=== PATIENT | male | born 1980 | race African-American/Black ===

== ENCOUNTER 2023-12-26 19:44 | Emergency (ER) | payer OTHER, SELFPAY ==
[2023-12-26] VITALS (7 sets, daily range): BP systolic 145–175; BP diastolic 100–118; BMI 39.1
[2023-12-26 20:00] LABS: % Basophils 0.3 % (0-2); % Eosinophils 0.9 % (0-6); % Immature Granulocytes 0.4 % (0-0.5); % Lymphocytes 30.8 % (20.5-51.1); % Monocytes 8.1 % (1.7-9.3); % Neutrophils 59.5 % (42.2-75.2); Absolute Eosinophils 0.1 10^3/uL (0-0.7); Absolute Lymphocytes 2.4 10^3/uL (1.2-3.4); Absolute Monocytes 0.6 10^3/uL (0.1-0.6); Absolute Neutrophils 4.6 10^3/uL (1.4-6.5); Hematocrit 40.4 % (39.0-52.0); Hemoglobin 14.1 g/dL (13.0-18.0); Mean Corp Hgb Conc. 34.9 g/dL (33.0-37.0); Mean Corpuscular Hgb 28.1 pg (27.0-31.0); Mean Corpuscular Volume 80.5 fL (80.0-94.0); Mean Platelet Volume 10.6 fL (7.4-10.4); Nucleated Red Blood Cells % 0 % (-); Platelet Count 263 10^3/uL (130-400); Red Blood Cell Count 5.02 10^6/uL (4.70-6.10); White Blood Cell Count 7.8 10^3/uL (4.8-10.8)
[2023-12-26 20:21] LABS: ALT (SGPT) 19 U/L (0-50); AST (SGOT) 18 U/L (17-59); Albumin 3.9 g/dl (3.5-5.0); Alkaline Phosphatase 45 U/L (38-126); Blood Urea Nitrogen 20 mg/dl (9-20); Calcium 9.9 mg/dl (8.4-10.2); Carbon Dioxide 26 mmol/L (22-30); Chloride 104 mmol/L (98-107); Glucose 171 mg/dl (70-99); Potassium 3.8 mmol/L (3.5-5.1); Sodium 138 mmol/L (135-145); Total Bilirubin 0.6 mg/dl (0.2-1.3); Total Protein 7.2 g/dl (6.3-8.2); eGFR > 60.00
[2023-12-26 20:53] LABS: TSH 0.59 uIU/ml (0.47-4.68)
--- NOTE | 2023-12-26 21:40 | ED.GENMED ---
History of Present Illness
<Marianela Peterson NP - Last Filed: 12/28/23 19:51>
General
Chief Complaint: Headache
Source: patient
Exam Limitations: none
Time Seen by Provider: 12/26/23 21:31
Nursing documentation reviewed up to this point in time: agreed with
Travel History
Have you had any contact with someone who has COVID-19?: No
Do you have any symptoms of coronavirus? Fever > 100 degrees, chills, cough, shortness of breath, sore throat, loss of taste or smell, muscle aches, or headache?: No
History of Present Illness
History of Present Illness:
Patient to ED with complaint of headaches for the past 2 weeks. States he has a migraine history, usually treats pain with accupuncture. States this has not been helpful over the past 2 weeks. States Weds she woke with headache and noted that his
blood pressure was elevated. States since then he has noted intermittent elevation in his heart rate, elevating to the 120's while at rest. Brought to ED by spouse for eval. Denies any cp/pressure, SOB, cough, trouble breathing. No swelling to
legs, no leg pain. PMH HTN, CHF. Reports compliance with his medication. Follows regularly with cardiology, last appointment was september. No changes to his medications at that time.
Past History
<Marianela Peterson NP - Last Filed: 12/28/23 19:51>
Past History
ED Past Medical History: HTN, NIDDM and Other (Myasthenia gravis)
ED Past Surgical History: Orthopedic and Other (Gastric sleeve)
Social History
Tobacco: Non-smoker
Alcohol: Occasional
Drug: None
Personal:
Living: with family
Employment: Employed
Family History
Family History: Other (reviewed and noncontributory)
Review of Systems
<Marianela Peterson NP - Last Filed: 12/28/23 19:51>
Review of Systems
Allergies reviewed?: Yes
All Other Systems: ROS reviewed and negative except as documented in HPI and ROS
Constitutional: Reports no symptoms
EENT: Reports no symptoms
Respiratory: Reports no symptoms
Cardiac: Reports other (Elevated BP and HR)
ABD/GI: Reports no symptoms
: Reports no symptoms
Musculoskeletal: Reports no symptoms
Skin: Reports no symptoms
Neurological: Reports headache (intermittent. Currently pain free)
Psychiatric: Reports no symptoms
Phy Exam
<Marianela Peterson NP - Last Filed: 12/28/23 19:51>
General Physical Exam
General Presentation: well appearing and no apparent distress
General age: appears stated age
General Skin: warm and dry
General Habitus: normal
Cardiovascular Exam
Cardiovascular Exam: regular rate/rhythm and no edema
Pulmonary Exam
Pulmonary Exam: lungs clear, no respiratory distress and chest non tender
Neurological Exam
Neurological Exam: alert, oriented x3 and speech normal
Musculoskeletal Exam
Musculoskeletal Exam: full ROM and neuro vasc intact
Skin Exam
Skin Exam: normal color, warm/dry and no rash
Psychiatric Exam
Psychiatric Exam: normal mood/affect
Course
<Marianela Peterson NP - Last Filed: 12/28/23 19:51>
Orders/Labs/Results
Orders:
Orders
12/26/23 19:49
Electrocardiogram (*1) Urgent
Reason for Study: Chest Pain
EKG- Treatment ONCE
12/26/23 19:55
Complete Blood Count/With Diff Urgent
Comprehensive Metabolic Panel Urgent
TSH Urgent
12/26/23 22:03
CT Head W/o Iv Contrast Urgent
Comment:
Reason For Exam: htn, carlin
03/01/24 22:05
IV Insert/Care/Rem.- Treatment PRN
12/26/23 22:22
Carvedilol [Coreg] 6.25 mg PO NOW STA
Abnormal Lab Results
12/26/23
19:55
RDW 15.0 H %
(11.5-14.5)
MPV 10.6 H fL
(7.4-10.4)
Glucose 171 H mg/dl
(70-99)
12/26/23 19:55
12/26/23 19:55
Vital Signs
Initial and Last Documented VS:
Initial Vital Signs
Temp Pulse Resp BP Pulse Ox
98.8 F 109 18 169/118 100
12/26/23 19:46 12/26/23 19:46 12/26/23 19:46 12/26/23 19:46 12/26/23 19:46
Last Documented Vital Signs
Temp Pulse Resp BP Pulse Ox
98.8 F 92 18 161/111 97
12/26/23 19:46 12/27/23 01:30 12/27/23 01:30 12/27/23 01:35 12/27/23 01:15
<Donna Bolanos MD - Last Filed: 12/26/23 22:20>
Orders/Labs/Results
Orders:
Orders
12/26/23 19:49
Electrocardiogram (*1) Urgent
Reason for Study: Chest Pain
EKG- Treatment ONCE
12/26/23 19:55
Complete Blood Count/With Diff Urgent
Comprehensive Metabolic Panel Urgent
TSH Urgent
12/26/23 22:03
CT Head W/o Iv Contrast Urgent
Comment:
Reason For Exam: htn, carlin
12/26/23 22:05
IV Insert/Care/Rem.- Treatment PRN
12/26/23 22:22
Carvedilol [Coreg] 6.25 mg PO NOW STA
Abnormal Lab Results
12/26/23
19:55
RDW 15.0 H %
(11.5-14.5)
MPV 10.6 H fL
(7.4-10.4)
Glucose 171 H mg/dl
(70-99)
12/26/23 19:55
12/26/23 19:55
Vital Signs
Initial and Last Documented VS:
Initial Vital Signs
Temp Pulse Resp BP Pulse Ox
98.8 F 109 18 169/118 100
12/26/23 19:46 12/26/23 19:46 12/26/23 19:46 12/26/23 19:46 12/26/23 19:46
Last Documented Vital Signs
Temp Pulse Resp BP Pulse Ox
98.8 F 92 18 161/111 97
12/26/23 19:46 12/27/23 01:30 12/27/23 01:30 12/27/23 01:35 12/27/23 01:15
<Marianela Peterson NP - Last Filed: 12/28/23 19:51>
*Critical Care Note
Total Time (30-74mins, 75-104mins- exclusive of procedures): Not Applicable
ED Attending Note
<Marianela Peterson NP - Last Filed: 12/28/23 19:51>
-
Portions of this chart may have been created with voice recognition software.� Occasional wrong word or��sound alike� substitutions may have occurred due to the inherent limitations of voice recognition software.
<Donna Bolanos MD - Last Filed: 12/26/23 22:20>
ED Attending Note
Patient seen and examined by attending physician: Yes
I performed the substantive portion of visit, reviewed & personally made and approve the management plan that is documented in note by myself or [place].: Yes
ED Attending Note:
43-year-old male with a history of heart failure and hypertension on multiple medications, also with a history of migraines which he typically gets about once a year reports recurrent almost daily migraines for the last 3 weeks. Pain is 'sharp'
'crescendo' i.e. not sudden onset, also described as 'throbbing', associated with phonophobia, photophobia, unilateral right-sided headache. Patient as result has been checking his blood pressure more frequently than usual and notes that it has
been poorly managed and markedly elevated. For example, on Friday was 174/109 with a heart rate of 115. Patient noted similar blood pressure tonight which prompted his visit here. Since arrival, patient's headache is now almost gone rated 1
out of 10, no associated neurological symptoms such as numbness, tingling, weakness, change in vision, dizziness, vertigo. He also denies chest pain, dyspnea, abdominal pain, nausea, vomiting, or other complaints. On exam, neurological intact,
cranial nerves II through XII intact, finger-nose normal, etc. Unclear if headaches are related to hypertension or more coincidental. Patient's blood pressure quite elevated now and he does not have a significant headache. No acute findings to
suggest endorgan injury. Labs reviewed, head CT pending. Case discussed with cardiology, recommendation to give carvedilol extra dose 6.25 right now increased to 12.5 twice daily with follow-up on Friday. We will give him this med now and
reassess, confirm patient remains asymptomatic, etc.
Discharge Plan
Departure
Patient Disposition: Home (Routine Discharge)
Date of Disposition: 12/27/23
Time of Disposition: 01:28
Patient with high blood pressure during this ER visit?: No
Condition: Good
Covid-19: Not Applicable
Discharge Problem:
HTN (hypertension)
Instructions: High blood pressure in adults
Prescriptions:
New
carvedilol [Coreg] 12.5 mg tablet
12.5 mg PO BID Qty: 60 0RF
No Action
metformin 500 MG tablet
500 mg PO BID@0800,1700
Hold Instructions: Resume on 06/26/22. RESUME IF BLOOD SUGAR LEVELS PERSISTENTLY OVER 200. START WITH ONCE A DAY. REPORT BLOOD SUGAR READINGS TO PCP.
prednisone 10 MG tablet
10 mg PO Q48H
mycophenolate mofetil 500 MG tablet
1,000 mg PO BID
pyridostigmine bromide 60 MG tablet
60 mg PO Q4H PRN (Reason: muscle pain)
zinc sulfate 220 MG capsule
220 mg PO DAILY 14 Days Qty: 14 0RF
carvedilol 3.125 mg Tablet
3.125 mg PO BID Qty: 60 0RF
Entresto 24-26 mg Tablet
1 tab PO BID Qty: 60 0RF
Farxiga 10 mg Tablet
10 mg PO DAILY Qty: 30 0RF
furosemide 20 mg Tablet
20 mg PO DAILY Qty: 30 0RF
Referrals:
Wilbert Fry MD [Active] - Call in 1-3 days for appt
Raphael Nation MD [Active] - Call in 1-3 days for appt
Jakub Joseph MD [Family Provider] -
Activity Restrictions/Additional Instructions:
Increase your carvedilol to 12.5mg every 12 hours. Call your meteorological observer on Friday to schedule your appointment.
Interventions
Interventions:
*Risk Screen - Suicide Last Done: 12/26/23 22:22
*General Assessment Last Done: 12/26/23 22:22
*Neglect/Abuse Screening Last Done: 12/26/23 22:22
ED- Fall Risk Assessment Last Done: 12/26/23 22:22
*ED COVID-19 Vaccine History Last Done: 12/26/23 22:22
*Nursing Disposition Last Done: 12/27/23 01:53
ED- Neurological Assessment Last Done: 12/26/23 22:22
Discharge Date and Time
Discharge Date/Time: 12/27/23 01:57
[2023-12-26] MEDS: COREG 6.25 MG PO (22:40)
[2023-12-27] VITALS: BP 150/109
[2023-12-27 00:29] VITALS: BP 158/113
[2023-12-27 01:00] VITALS: BP 159/106
[2023-12-27 01:35] VITALS: BP 161/111
== END 2023-12-27 01:57 | disposition home or self-care (01) ==
LOC: EMR 19:44
PROVIDERS: Student in an Organized Health Care Education/Training Program; EMERGENCY PHYSICIAN Emergency Medicine; FAMILY PHYSICIAN Family Medicine
DX: R51.9 Headache, unspecified (principal); I10 Essential (primary) hypertension; I50.9 Heart failure, unspecified
CPT/HCPCS: 99285; 70450; 80053; 84443; 85025; 93005

== ENCOUNTER 2024-02-11 23:43 | Inpatient (IN) | payer OTHER, SELFPAY ==
[2024-02-11 19:25] VITALS: BP 107/75
[2024-02-11 19:54] LABS: % Basophils 0.1 % (0-2); % Eosinophils 0.6 % (0-6); % Immature Granulocytes 0.3 % (0-0.5); % Lymphocytes 30.1 % (20.5-51.1); % Monocytes 7.3 % (1.7-9.3); % Neutrophils 61.6 % (42.2-75.2); Absolute Eosinophils 0.1 10^3/uL (0-0.7); Absolute Lymphocytes 2.4 10^3/uL (1.2-3.4); Absolute Monocytes 0.6 10^3/uL (0.1-0.6); Absolute Neutrophils 4.8 10^3/uL (1.4-6.5); Hematocrit 33.2 % (39.0-52.0); Hemoglobin 11.6 g/dL (13.0-18.0); Mean Corp Hgb Conc. 34.9 g/dL (33.0-37.0); Mean Corpuscular Hgb 28.6 pg (27.0-31.0); Mean Platelet Volume 10.9 fL (7.4-10.4); Nucleated Red Blood Cells % 0 % (-); Platelet Count 235 10^3/uL (130-400); Red Blood Cell Count 4.05 10^6/uL (4.70-6.10); Red Cell Dist. Width 14.2 % (11.5-14.5); White Blood Cell Count 7.8 10^3/uL (4.8-10.8)
[2024-02-11 20:08] LABS: ALT (SGPT) 22 U/L (0-50); AST (SGOT) 22 U/L (17-59); Albumin 4.1 g/dl (3.5-5.0); Alkaline Phosphatase 43 U/L (38-126); Blood Urea Nitrogen 25 mg/dl (9-20); Calcium 9.4 mg/dl (8.4-10.2); Carbon Dioxide 24 mmol/L (22-30); Chloride 105 mmol/L (98-107); Glucose 212 mg/dl (70-99); Potassium 4.3 mmol/L (3.5-5.1); Sodium 133 mmol/L (135-145); Total Bilirubin 0.5 mg/dl (0.2-1.3); Total Protein 6.8 g/dl (6.3-8.2); eGFR > 60.00
[2024-02-11 21:28] VITALS: BP 107/70
[2024-02-11 21:33] VITALS: BP 104/74; BP 107/70; BP 111/79; PULSE 100; PULSE 113; PULSE 89
--- NOTE | 2024-02-11 21:58 | ED.GENMED ---
History of Present Illness
<YUAN Estrada - Last Filed: 02/11/24 23:21>
General
Chief Complaint: Dizziness
Source: patient
Exam Limitations: none
Time Seen by Provider: 02/11/24 21:57
Travel History
Have you had any contact with someone who has COVID-19?: No
Do you have any symptoms of coronavirus? Fever > 100 degrees, chills, cough, shortness of breath, sore throat, loss of taste or smell, muscle aches, or headache?: No
History of Present Illness
History of Present Illness:
43 year old male with PMHx CHF, HTN, and myasthenia gravis presents with c/o dizziness x1-2 weeks. Patient reports dizziness occurs when with exertion. Worse in the morning, but continues sporadically throughout the day. 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
increased his Carvedilol dosage and added Spironolactone to his medication list within the last month. He also reports being diagnosed with Trigeminal Neuralgia last month by his PCP and was started on Gabapentin. He admits having persistent
headaches x2 months associated with the Trigeminal Neuralgia. He has been taking Aleve 2 tabs every night for headache relief. Patient also reports having black tarry formed stools x1 week. He reports 2-3 BM daily. He denies any iron supplements or
Pepto Bismol. He denies any abdominal pain, nausea, vomiting, diarrhea, BRBPR, weight loss, fever, weakness or fatigue. He denies any blood on the toilet paper. He does have a surgical history of gastric sleeve in 2010.
Past History
<YUAN Estrada - Last Filed: 02/11/24 23:21>
Past History
ED Past Medical History: HTN, NIDDM and Other (Myasthenia gravis)
ED Past Surgical History: Orthopedic and Other (Gastric sleeve)
Social History
Tobacco: Non-smoker
Alcohol: Occasional
Drug: None
Personal:
Living: with family
Employment: Employed
Family History
Family History: Other (reviewed and noncontributory)
Review of Systems
<YUAN Estrada - Last Filed: 02/11/24 23:21>
Review of Systems
Allergies reviewed?: Yes
All Other Systems: Not applicable
Constitutional: Reports no symptoms
EENT: Reports no symptoms
Respiratory: Reports no symptoms
Cardiac: Reports no symptoms
ABD/GI: Reports black stools
: Reports no symptoms
Musculoskeletal: Reports no symptoms
Skin: Reports no symptoms
Neurological: Reports dizzy and headache
Endocrine: Reports no symptoms
Hematologic/Lymphatic: Reports no symptoms
Psychiatric: Reports no symptoms
Phy Exam
<ST SeanID - Last Filed: 02/11/24 23:21>
General Physical Exam
General Presentation: well appearing and no apparent distress
General Skin: warm and dry
General Habitus: normal
General Mental: alert
General Hydration: appears well hydrated
ENT Exam
ENT Exam: EOMI, pharynx normal, neck supple and normocephalic
Eye Exam
Eye Exam: PERRL, cornea clear and conjunctiva normal
Cardiovascular Exam
Cardiovascular Exam: regular rate/rhythm, no edema, no murmur and normal peripheral pulses
Pulmonary Exam
Pulmonary Exam: lungs clear, no respiratory distress, no rales, no crackles, no rhonchi, no stridor, no wheezing and no cough
Gastrointestinal Exam
Gastrointestinal Exam: normal bowel sounds, non tender, soft, no organomegaly, no pulsatile mass and non distended
Rectal Exam: normal external exam and normal sphincter tone
Guaiac Status: positive
Neurological Exam
Neurological Exam: alert, oriented x3, no motor deficits and speech normal
Musculoskeletal Exam
Musculoskeletal Exam: full ROM and no edema
Skin Exam
Skin Exam: normal color, warm/dry, no rash and no petechia
Psychiatric Exam
Psychiatric Exam: normal mood/affect
Course
<YUAN Estrada - Last Filed: 02/11/24 23:21>
Orders/Labs/Results
Orders:
Orders
02/11/24 19:31
Electrocardiogram (*1) Urgent
Reason for Study: Vertigo / Dizzy
02/11/24 19:32
EKG- Treatment ONCE
02/11/24 19:48
Type+Screen Urgent
Complete Blood Count/With Diff Urgent
Comprehensive Metabolic Panel Urgent
02/11/24 22:58
0.9% Sodium Chloride 1000 ml [Nss] 1,000 ml IV BOLUS
Pantoprazole [Protonix IV] 80 mg IV NOW STA
02/11/24 23:10
Pantoprazole 80 mg/100 ml Nss [Protonix] 80 mg in 100 ml IV NOW
Abnormal Lab Results
02/11/24
19:48
RBC 4.05 L 10^6/uL
(4.70-6.10)
Hgb 11.6 L g/dL
(13.0-18.0)
Hct 33.2 L %
(39.0-52.0)
MPV 10.9 H fL
(7.4-10.4)
Sodium 133 L mmol/L
(135-145)
BUN 25 H mg/dl
(9-20)
Glucose 212 H mg/dl
(70-99)
02/11/24 19:48
02/11/24 19:48
Vital Signs
Initial and Last Documented VS:
Initial Vital Signs
Temp Pulse Resp BP Pulse Ox
98.2 F 115 18 107/75 99
02/11/24 19:25 02/11/24 19:25 02/11/24 19:25 02/11/24 19:25 02/11/24 19:25
Last Documented Vital Signs
Temp Pulse Resp BP Pulse Ox
98.2 F 96 18 107/70 97
02/11/24 19:25 02/11/24 21:28 02/11/24 19:25 02/11/24 21:28 02/11/24 21:28
<Elvia Gonzalez, DO - Last Filed: 02/11/24 23:32>
Orders/Labs/Results
Orders:
Orders
02/11/24 19:31
Electrocardiogram (*1) Urgent
Reason for Study: Vertigo / Dizzy
02/11/24 19:32
EKG- Treatment ONCE
02/11/24 19:48
Type+Screen Urgent
Complete Blood Count/With Diff Urgent
Comprehensive Metabolic Panel Urgent
02/11/24 22:58
0.9% Sodium Chloride 1000 ml [Nss] 1,000 ml IV BOLUS
Pantoprazole [Protonix IV] 80 mg IV NOW STA
02/11/24 23:10
Pantoprazole 80 mg/100 ml Nss [Protonix] 80 mg in 100 ml IV NOW
Abnormal Lab Results
02/11/24
19:48
RBC 4.05 L 10^6/uL
(4.70-6.10)
Hgb 11.6 L g/dL
(13.0-18.0)
Hct 33.2 L %
(39.0-52.0)
MPV 10.9 H fL
(7.4-10.4)
Sodium 133 L mmol/L
(135-145)
BUN 25 H mg/dl
(9-20)
Glucose 212 H mg/dl
(70-99)
02/11/24 19:48
02/11/24 19:48
Vital Signs
Initial and Last Documented VS:
Initial Vital Signs
Temp Pulse Resp BP Pulse Ox
98.2 F 115 18 107/75 99
02/11/24 19:25 02/11/24 19:25 02/11/24 19:25 02/11/24 19:25 02/11/24 19:25
Last Documented Vital Signs
Temp Pulse Resp BP Pulse Ox
98.2 F 96 18 107/70 97
02/11/24 19:25 02/11/24 21:28 02/11/24 19:25 02/11/24 21:28 02/11/24 21:28
<YUAN Estrada - Last Filed: 02/11/24 23:21>
MDM/Problems Addressed
Differential Diagnosis Includes:
Upper GI bleed considered d/t black tarry stools and positive guaiac test. Patient's Hgb in 12/2023 was 14.1 and dropped to 11.6 today. His BUN is slightly elevated at 25. Concerned for gastritis d/t daily NSAID use. Less likely to be peptic ulcer
due to lack of nausea, vomiting, or abdominal pain. Medication induced dizziness considered recent changes to HTN medication causing his drop in BP. His BP has been running low today. Positive orthostatics with heart rate. He is hemodynamically
stable. Plan to admit to the hospitalist service, potential GI consult and consideration of upper endoscopy for further evaluation of UGIB. Will start on Protonix drip.
<Elvia Gonzalez DO - Last Filed: 02/11/24 23:32>
*Pulse Oximetry
Patient hypoxic: no
*EKG
Interpreted by ED Provider?: Yes
Interpretation: normal
Comparison EKG: no changes (Unchanged from previous December 26, 2023 save for heart rate has increased from 90 to now 100)
Rate: normal
Rhythm: sinus
[place]: normal axis
Interval: normal interval
QRS Pattern: normal QRS
Ischemia: no ischemia
*Turbogenerator Operator Interpretation
Rate: normal and tachycardiac
Rhythm: sinus
*Critical Care Note
Total Time (30-74mins, 75-104mins- exclusive of procedures): Not Applicable
ED Attending Note
<YUAN Estrada - Last Filed: 02/11/24 23:21>
-
Portions of this chart may have been created with voice recognition software.� Occasional wrong word or��sound alike� substitutions may have occurred due to the inherent limitations of voice recognition software.
<Elvia Gonzalez DO - Last Filed: 02/11/24 23:32>
ED Attending Note
Patient seen and examined by attending physician: Yes
I performed the substantive portion of visit, reviewed & personally made and approve the management plan that is documented in note by myself or [place].: Yes
I performed a history and physical exam of patient and discussed management with resident, I reviewed resident's note and agree with documented findings and plan of care.: Yes
ED Attending Note:
This is a 43-year-old gentleman who has history of hypertension, CHF with EF of 50%, follows regularly with cardiology. He also has history of [id number] diabetes, myasthenia gravis maintained on mycophenolate, pyridostigmine as well as
prednisone. More recently he has been suffering with persistent headache over the past 2 months and was evaluated in this ED December 25 with complaints of headache and elevated blood pressure.
Workup unremarkable, Coreg dose increased to 12.5 twice daily, discussed with cardiology and patient has since followed up with cardiology and since that visit spironolactone was added. He has also been following with primary care physician
regarding ongoing headache and diagnosed with trigeminal neuralgia and recently started on gabapentin with overall improvement in headache.
With ongoing headache over the past 2 months patient has been taking Aleve twice daily for at least the past 2 months and over the past week, he is had intermittent lightheadedness and dizziness more so when he first gets up in the morning as well
as sporadically throughout the day when he is up and about accompanied with dyspnea on exertion. Symptoms have worsened over the past week.
He is also noted 1 week history of black, tarry stools. He denies abdominal pain, no nausea nor vomiting. He does admit to dyspnea on exertion but has had no chest pain, no fever nor chills.
Blood pressure has been running quite low today 100-110 prompting ED visit.
GENERAL: 43-year-old gentleman appears his stated age, awake and alert, pleasant, appears in no acute distress.
EYE: anicteric
NECK: Supple, nontender, no meningismus, no significant adenopathy. No JVD.
ENT: oral mucosa is moist. No rhinorrhea.
CARDIAC: Regular rate and rhythm. no murmur.
LUNGS: Clear breath sounds bilaterally, no acute respiratory distress, no wheezes/rales/rhonchi
ABDOMEN: Soft, nondistended, without focal tenderness, no r/g, no cvat. normoactive BS. Rectal exam by PA student, black stool that is heme positive.
NEUROLOGICAL: Alert and oriented x3, no focal neuro deficits.
SKIN: Warm and dry, normal color, skin intact. No rash.
MUSCULOSKELETAL: No C/C/E. peripheral pulses are full and equal b/l. No palpable tenderness.
PSYCH: Normal and appropriate interaction.
Significant concern for symptomatic anemia, acute/subacute blood loss anemia.
With history of recent NSAID use, remote history of gastric sleeve procedure and chronic prednisone use I have significant concern for acute upper GI bleed/hemorrhagic gastritis, bleeding peptic ulcer disease. Less likely lower GI bleed.
Labs reveal anemia with hemoglobin of 11.6 which is 3 g drop from just 6 weeks ago. Mildly elevated BUN of 25 has drifted up mildly from 21 6 weeks ago. Random glucose 212 elevated but similar to previous.
Orthostatic vital signs are positive with heart rate trending up greater than 20 points with standing.
Overall blood pressure is somewhat soft borderline hypotensive.
With acute/subacute blood loss anemia now symptomatic anemia patient is at significant risk for progression of symptoms, progressive orthostasis with syncope.
Will initiate IV fluid resuscitation as well as IV Protonix bolus and drip.
Overall will be cautious with IV fluids due to history of CHF.
Will plan to admit to hospitalist service.
Discharge Plan
Departure
Patient Disposition: Admit
Date of Disposition: 02/11/24
Time of Disposition: 23:20
Admit to: Med/Surg
Admit to doctor: hospitalist
Presentation/result/management discussed w/ accepting MD/DO: Hospitalist
Condition: Fair
Discharge Problem:
Symptomatic anemia, Acute blood loss anemia, Acute upper gastrointestinal bleeding
Prescriptions:
No Action
metformin 500 MG tablet
500 mg PO BID@0800,1700
Hold Instructions: Resume on 06/26/22. RESUME IF BLOOD SUGAR LEVELS PERSISTENTLY OVER 200. START WITH ONCE A DAY. REPORT BLOOD SUGAR READINGS TO PCP.
prednisone 10 MG tablet
10 mg PO Q48H
mycophenolate mofetil 500 MG tablet
1,000 mg PO BID
pyridostigmine bromide 60 MG tablet
60 mg PO Q4H PRN (Reason: muscle pain)
zinc sulfate 220 MG capsule
220 mg PO DAILY 14 Days Qty: 14 0RF
carvedilol 3.125 mg Tablet
3.125 mg PO BID Qty: 60 0RF
Entresto 24-26 mg Tablet
1 tab PO BID Qty: 60 0RF
Farxiga 10 mg Tablet
10 mg PO DAILY Qty: 30 0RF
furosemide 20 mg Tablet
20 mg PO DAILY Qty: 30 0RF
carvedilol [Coreg] 12.5 mg tablet
12.5 mg PO BID Qty: 60 0RF
Referrals:
Jakub Joseph MD [Family Provider] -
Interventions
Interventions:
*Risk Screen - Suicide Last Done: 02/11/24 19:25
*General Assessment Last Done: 02/11/24 19:25
*Neglect/Abuse Screening Last Done: 02/11/24 19:25
ED- Neurological Assessment Last Done: 02/11/24 22:35
Discharge Date and Time
Print Language: KITTITIAN
[2024-02-11] MEDS: NSS 1000 IV (23:24)
[2024-02-11] MEDS: PROTONIX IV 80 MG IV (23:25)
[2024-02-11] MEDS: PROTONIX 100 IV (23:25)
[2024-02-11 23:34] VITALS: BP 107/76
--- NOTE | 2024-02-11 23:48 | HPS.HSE ---
Addendum entered and electronically signed by Diana Milner MD 02/11/24 23:52:
Continue spironolactone for CHF.
Continue Adderall for ADHD.
Original Note:
Family Physician
-
Family Physician: Jakub Joseph
Chief Complaint
-
dizziness
History of Present Illness
43-year-old male with past medical history of gastric ulcer bleeding as a child, gastric sleeve, CHF, hypertension, myasthenia gravis, diabetes, presents with dizziness for the past 1 to 2 weeks. Dizziness occurs with exertion and is worse in the
morning but continue sporadically throughout the day. He also has some shortness of breath. Denies any chest pain. He has been having black tarry formed stools for the past 1 week. He has 2-3 bowel movements daily. He denies any iron
supplements or Pepto-Bismol. He denies any abdominal pain, nausea or vomiting, diarrhea, weight loss, fever or weakness.
He had rectal bleeding as a child and had endoscopy at that time which showed gastric ulcer.
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
He was also diagnosed with trigeminal neuralgia last month for headaches for 2 months by his primary care physician and was started on gabapentin. He has been taking Aleve 2 tablets every night for headache relief. His headaches have been more
controlled.
He denies smoking or alcohol use.
Medical History
Past Medical History
Past Medical History: Reports Other (gastric ulcer bleeding as a child, gastric sleeve, CHF, hypertension, myasthenia gravis, diabetes,)
Past Surgical History: Reports None
Social History
Tobacco: Non-smoker
Alcohol: None
Drug: None
Family History
Family History: Not pertinent
Allergies / Home Medications
Allergies reflects when Allergies were last updated in [facility].
Home Medications with original date entered in [facility]
Allergy/Medication List:
Allergies
Allergy/AdvReac Type Severity Reaction Status Date / Time
hydralazine Allergy Headache Verified 02/11/24 22:35
Home Medications
metformin 500 mg tablet 500 mg PO BID@0800,1700 Diabetes 07/04/21
mycophenolate mofetil 500 mg tablet 1,000 mg PO BID Autoimmune disorder 07/04/21
prednisone 10 mg tablet 10 mg PO Q48H Autoimmune disorder 07/04/21
pyridostigmine bromide 60 mg tablet 60 mg PO Q4H PRN muscle pain 07/04/21
zinc sulfate 50 mg zinc (220 mg) capsule 220 mg (4.4 x 50 mg zinc (220 mg)) PO DAILY 14 days #14 caps 07/07/21
carvedilol 3.125 mg tablet 3.125 mg PO BID #60 tabs 06/07/22
dapagliflozin propanediol 10 mg tablet (Farxiga) 10 mg PO DAILY #30 tabs 06/07/22
furosemide 20 mg tablet 20 mg PO DAILY #30 tabs 06/07/22
sacubitril 24 mg-valsartan 26 mg tablet (Entresto) 1 tab PO BID #60 tabs 06/07/22
carvedilol 12.5 mg tablet (Coreg) 12.5 mg PO BID #60 tabs 12/27/23
Review of Systems
-
History Source: Patient
A 12 point ROS was completed and negative except as noted: Yes
Constitutional: Reports No Symptoms
EENT: Reports No Symptoms
Respiratory: Reports See HPI
Cardiac: Reports See HPI
Abdomen/GI: Reports See HPI
: Reports No Symptoms
Musculoskeletal: Reports No Symptoms
Skin: Reports No Symptoms
Neurological: Reports No Symptoms
Endocrine: Reports No Symptoms
Hematologic/Lymphatic: Reports No Symptoms
Psych: Reports No Symptoms
Physical Exam
Vital Signs
Vital Signs
Temp Pulse Resp BP Pulse Ox
97.7 F 79 18 107/76 98
02/11/24 23:34 02/11/24 23:34 02/11/24 19:25 02/11/24 23:34 02/11/24 23:34
Physical Exam
General: Well Developed, Well Nourished and No Apparent Distress
HEENT: NormoCephalic, Moist mucous membranes and Atraumatic
Respiratory: Clear
Cardiac: S1/S2 and Regular Rhythm; No Murmur or Rub
GI: Soft, Non Tender, Non Distended and Normal Bowel Sounds; No Organomegaly
Rectal: Deferred by Provider
Musculoskeletal: No Clubbing, No Cyanosis and No Edema
Skin: No Rash
Neuro: Nonfocal/grossly intact
Laboratory Results
-
02/11/24 19:48
02/11/24 19:48
Laboratory Results
Total Bilirubin 0.5 mg/dl (0.2-1.3) 02/11/24 19:48
AST 22 U/L (17-59) 02/11/24 19:48
ALT 22 U/L (0-50) 02/11/24 19:48
Alkaline Phosphatase 43 U/L (38-126) 02/11/24 19:48
Data Reviewed
-
Lab Data: Labs Reviewed by me
Old Records: Reviewed
Impression/Plan
-
IMPRESSION:
PLAN:
# Symptomatic acute blood loss anemia secondary to upper GI bleeding provoked by NSAID use
# History of gastric sleeve
# History of gastric ulcer as a child
-Hemoglobin of 11.6 from 14 last month
-Type and screen
-Hold NSAIDs
-IV fluids given
-Protonix drip
-N.p.o.
-GI consulted
Headache secondary to trigeminal neuralgia
-Hold NSAIDs
-Continue gabapentin
Chronic HFrEF
-Hold Lasix
-Continue Coreg
-Continue Entresto
Essential hypertension
Myasthenia gravis
-Continue mycophenolate
-Continue Prostigmin
-Continue prednisone
Type 2 diabetes
-Hold metformin
-Continue Farxiga
-Insulin sliding scale
Obesity
Full code
DVT prophylaxis�SCDs
N.p.o.
[2024-02-12] VITALS (12 sets, daily range): BP systolic 14–142; BP diastolic 64–116; BMI 34.1; BMI 34.2
[2024-02-12] MEDS: PROTONIX IV (02:27)
[2024-02-12 05:36] LABS: % Basophils 0.3 % (0-2); % Eosinophils 1.1 % (0-6); % Immature Granulocytes 0.4 % (0-0.5); % Lymphocytes 44.8 % (20.5-51.1); % Monocytes 7.3 % (1.7-9.3); % Neutrophils 46.1 % (42.2-75.2); Absolute Eosinophils 0.1 10^3/uL (0-0.7); Absolute Lymphocytes 3.4 10^3/uL (1.2-3.4); Absolute Monocytes 0.6 10^3/uL (0.1-0.6); Absolute Neutrophils 3.5 10^3/uL (1.4-6.5); Hemoglobin 10.3 g/dL (13.0-18.0); Mean Corp Hgb Conc. 34.3 g/dL (33.0-37.0); Mean Corpuscular Hgb 28.5 pg (27.0-31.0); Mean Corpuscular Volume 83.1 fL (80.0-94.0); Mean Platelet Volume 11.1 fL (7.4-10.4); Nucleated Red Blood Cells % 0 % (-); Platelet Count 198 10^3/uL (130-400); Red Blood Cell Count 3.61 10^6/uL (4.70-6.10); Red Cell Dist. Width 14.1 % (11.5-14.5); White Blood Cell Count 7.5 10^3/uL (4.8-10.8)
[2024-02-12 06:03] LABS: ALT (SGPT) 16 U/L (0-50); AST (SGOT) 16 U/L (17-59); Albumin 3.5 g/dl (3.5-5.0); Alkaline Phosphatase 38 U/L (38-126); Blood Urea Nitrogen 20 mg/dl (9-20); Calcium 9.2 mg/dl (8.4-10.2); Carbon Dioxide 23 mmol/L (22-30); Chloride 107 mmol/L (98-107); Estimated Creatinine Clearance > 125 ml/min; Glucose 125 mg/dl (70-99); Potassium 3.8 mmol/L (3.5-5.1); Sodium 136 mmol/L (135-145); Total Protein 5.9 g/dl (6.3-8.2); eGFR > 60.00
--- NOTE | 2024-02-12 07:47 | EDRN ---
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
currently running at 8mg/hour via Right Arm #[address], VS WNL, no s/s of distress, pt will be taken to the floor shortly
[2024-02-12] MEDS: JARDIANCE PO (08:33)
[2024-02-12 08:40] LABS: Glucose - Point of Care 149 mg/dl (70-99)
--- NOTE | 2024-02-12 08:47 | CON.GI ---
Addendum entered and electronically signed by Jerardo Palma MD 02/12/24 09:54:
I saw and examined the patient.
The KIER BOILER or PA's note was reviewed and I agree with the note.
Comment: 43yo male presents with dizziness, melena, taking NSAIDs several times daily for trigeminal neuralgia for last several months. Hgb 11.6. He had similar episode at age 14 and had EGD showing ulcer requiring cautery. Treated with PPI for
several months then resolved. Denies n/v, abd pain. Has hx gastric sleeve in 2010.
REC:
Cont protonix gtt
EGD today to eval for likely NSAID ulcer
Advised pt to discuss other rx options besides NSAIDs for his trigeminal neuralgia. He is on gabapentin.
Original Note:
Consultation
-
Date/Time Consultation Requested: 02/12/24 0128
Date/Time Consultation Performed: 02/12/24 0900
Requesting Provider: Dr. Milner
Performing Provider: Dr. Palma / Stacy Hewitt PA-C
Reason for Consultation: melena, anemia
Medical History
Chief Complaint / HPI
Chief Complaint: melena, dizziness
History of Present Illness:
This is a 43 year old male with a past medical history of HTN, DM, CHF, ADHD, myasthenia gravis, trigeminal neuralgia, and s/p gastric sleeve surgery in 2010 who presented to the ER with complaints of black, tarry stools and dizziness. He noticed
the black stools 2 weeks ago and states that the dizziness worsened in the past few days. He denies any abdominal pain. No nausea, vomiting, heartburn, diarrhea, constipation or hematochezia. He is on prednisone chronically for myasthenia gravis. He
was recently diagnosed with trigeminal neuralgia and started on gabapentin. He admits to heavy NSAID use for the past 2 months for headaches, admits to taking daily high doses of both Aleve, ibuprofen ('whatever I could get my hands on' for pain
relief) multiple times daily for 2 months. He has no history of reflux and denies any heartburn or dysphagia. He reports a remote history of a gastric ulcer at age 15. He had an endoscopy at that time but has not had since. He has never had a
colonoscopy. There is no family history of any GI malignancies.
Labs in the ER showed hemoglobin of 11.6, down to 10.3 this morning. Normal MCV, platelets, and no leukocytosis. BUN mildly elevated at 25 on admission.
Past Medical History
Past Medical History: CHF, HTN, NIDDM and Other (ADHD, myasthenia gravis, trigeminal neuralgia)
Past Surgical History: Other (gastric sleeve 2010, [place])
Social History
Tobacco: Non-Smoker
Alcohol: Occasional (he drinks socially 'once every few months')
Drug: None
Living: With Family
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
Family History
Family History: Other (no family history of GI malignancies)
Allergies / Home Medications
Allergy/AdvReac Type Severity Reaction Status Date / Time
hydralazine Allergy Headache Verified 02/11/24 22:35
�Medication �Instructions �Recorded
prednisone 10 mg tablet 20 mg PO DAILY Autoimmune disorder 07/04/21
pyridostigmine bromide 60 mg tablet 60 mg PO QIDPRN PRN muscle pain 07/04/21
carvedilol 12.5 mg tablet (Coreg) 12.5 mg PO BID #60 tabs 12/27/23
dextroamphetamine-amphetamine 10 10 mg PO BIDPRN PRN FOCUS 02/11/24
mg tablet
empagliflozin 10 mg tablet 10 mg PO DAILY 02/11/24
(Jardiance)
furosemide 40 mg tablet 40 mg PO DAILY 02/11/24
gabapentin 300 mg capsule 300 mg PO TID 02/11/24
ibuprofen 200 mg tablet 400 mg PO DAILY@0 02/11/24
naproxen sodium 220 mg tablet 440 mg PO DAILY@02002/11/24
(Aleve)
sacubitril 97 mg-valsartan 103 mg 1 tab PO BID 02/11/24
tablet (Entresto)
semaglutide 1 mg/dose (4 mg/3 mL) 1 mg SC FR 02/11/24
subcutaneous pen injector (Ozempic)
sildenafil 100 mg tablet 100 mg PO DAILYPRN PRN ED 02/11/24
spironolactone 25 mg tablet 25 mg PO DAILY 02/11/24
Review of Systems
-
History Source: Patient
All other systems: A 12 pt ROS was Negative except as stated above in HPI
Vital Signs
Temp Pulse Resp BP Pulse Ox
98.1 F 92 16 108/83 99
02/12/24 08:33 02/12/24 08:33 02/12/24 08:33 02/12/24 08:33 02/12/24 08:33
Physical Exam
Exam
General: Well Developed, Well Nourished and No Apparent Distress
Respiratory: Clear
Cardiac: Regular Rhythm
GI: Soft, Non Tender, Non Distended and Normal Bowel Sounds
Rectal: Other (heme positive in ER)
Skin: Warm and Dry
Neuro: AO x 3
Psych: Calm
Results
WBC 7.5 10^3/uL (4.8-10.8) 02/12/24 05:28
Hgb 10.3 g/dL (13.0-18.0) L 02/12/24 05:28
Hct 30.0 % (39.0-52.0) L 02/12/24 05:28
MCV 83.1 fL (80.0-94.0) 02/12/24 05:28
Plt Count 198 10^3/uL (130-400) 02/12/24 05:28
Absolute Neuts (auto) 3.5 10^3/uL (1.4-6.5) 02/12/24 05:28
Sodium 136 mmol/L (135-145) 02/12/24 05:28
Potassium 3.8 mmol/L (3.5-5.1) 02/12/24 05:28
Chloride 107 mmol/L (98-107) 02/12/24 05:28
Carbon Dioxide 23 mmol/L (22-30) 02/12/24 05:28
BUN 20 mg/dl (9-20) 02/12/24 05:28
Creatinine 1.0 mg/dL (0.7-1.3) 02/12/24 05:28
Calcium 9.2 mg/dl (8.4-10.2) 02/12/24 05:28
Total Bilirubin 1.0 mg/dl (0.2-1.3) 02/12/24 05:28
AST 16 U/L (17-59) L 02/12/24 05:28
ALT 16 U/L (0-50) 02/12/24 05:28
Alkaline Phosphatase 38 U/L (38-126) 02/12/24 05:28
Diagnostic Image Results:
Prior GI Procedures:
EGD: at age 15, reportedly showed a gastric ulcer
Colonoscopy: Never
Assessment / Plan
-
43 year old male with history of HTN, DM, CHF, ADHD, myasthenia gravis, trigeminal neuralgia, and s/p gastric sleeve surgery in 2010 who presented to the ER with complaints of black, tarry stools and dizziness. He noticed the black stools 2 weeks
ago and states that the dizziness worsened in the past few days. No abdominal pain. He denies any nausea, vomiting, heartburn, diarrhea, constipation or hematochezia. He is on prednisone chronically for myasthenia gravis and was recently diagnosed
with trigeminal neuralgia, started on gabapentin. He admits to heavy NSAID use for the past 2 months for headaches, admits to taking daily high doses of both Aleve, ibuprofen ('whatever I could get my hands on' for pain relief) multiple times daily
for 2 months. He has no history of reflux and denies any heartburn or dysphagia. He reports a remote history of a gastric ulcer at age 15, and had an endoscopy at that time but not since. He has never had a colonoscopy. There is no family history of
any GI malignancies.
Labs in the ER showed hemoglobin of 11.6, down to 10.3 this morning. Normal MCV, platelets, and no leukocytosis. BUN mildly elevated at 25 on admission. He has remained hemodynamically stable.
IMPRESSION / PLAN:
Symptomatic anemia, with melena, secondary to acute blood loss from suspected PUD secondary to NSAIDs
-h/o gastric sleeve surgery in 2010
-admits to heavy NSAID use for the past 2 months
-Hgb 11.6 on admission, down to 10.3 today
-continue to trend hemoglobin
-HOLD NSAIDs
-continue Protonix gtt
-continue IV fluids
-NPO
-Plan for endoscopy today
Colorectal Cancer Screening
-we discussed the recommendation for outpatient colonoscopy after discharge for CRC screening
Other medical problems managed as per hospitalist.
-
-
Thank you for consultation and allowing me to participate in the patient's care. Please call the machine stone polisher GI physician during the after hours with any questions or concerns.
[2024-02-12] MEDS: PROTONIX 100 IV ×2 (09:41→18:13)
[2024-02-12] MEDS: COREG 12.5 MG PO ×2 (09:47→21:40)
[2024-02-12] MEDS: ALDACTONE 25 MG PO (09:48)
[2024-02-12] MEDS: DELTASONE 20 MG PO (09:48)
[2024-02-12] MEDS: NEURONTIN 300 MG PO ×3 (09:48→21:40)
[2024-02-12] MEDS: ENTRESTO 97 MG/103 MG 1 TAB PO ×2 (09:49→21:41)
[2024-02-12] MEDS: MESTINON 60 MG PO (09:54)
[2024-02-12 11:43] LABS: Glucose - Point of Care 180 mg/dl (70-99)
--- NOTE | 2024-02-12 12:04 | W.PN.HOSP.TC ---
Today's Communication/Plan
-
Continue PPI IV
For EGD later today
We talked over options to increase gabapentin to treat treat his trigeminal neuralgia/plan will be to go from 100 3 times daily to 200 3 times daily may start at 200 mg at bedtime if sedation
Assessment / Plan
Assessment / Plan
43-year-old male with past medical history of gastric ulcer bleeding as a child, gastric sleeve, CHF, hypertension, myasthenia gravis, diabetes, presents with dizziness for the past 1 to 2 weeks. Dizziness occurs with exertion and is worse in the
morning but continue sporadically throughout the day. He also has some shortness of breath. Denies any chest pain. He has been having black tarry formed stools for the past 1 week. He has 2-3 bowel movements daily. He denies any iron
supplements or Pepto-Bismol. He denies any abdominal pain, nausea or vomiting, diarrhea, weight loss, fever or weakness.
He had rectal bleeding as a child and had endoscopy at that time which showed gastric ulcer.
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
He was also diagnosed with trigeminal neuralgia last month for headaches for 2 months by his primary care physician and was started on gabapentin. He has been taking Aleve 2 tablets every night for headache relief. His headaches have been more
controlled.
He denies smoking or alcohol use.
# Symptomatic acute blood loss anemia secondary to upper GI bleeding provoked by NSAID use
# History of gastric sleeve
# History of gastric ulcer as a child
-Hemoglobin of 11.6 from 14 last month>> 10.3 this morning
-Type and screen
-Hold NSAIDs
-IV fluids given
-Protonix drip
-N.p.o./for EGD later today
-GI consulted
Headache secondary to trigeminal neuralgia
-Hold NSAIDs
-Continue gabapentin/we talked over options of up titration to try and avoid further NSAID usage
Chronic HFrEF
-Hold Lasix
-Continue Coreg
-Continue Entresto
Essential hypertension
Myasthenia gravis
-Continue mycophenolate
-Continue Prostigmin
-Continue prednisone
Type 2 diabetes
-Hold metformin
-Continue Farxiga
-Insulin sliding scale
Obesity
Full code
DVT prophylaxis�SCDs
N.p.o.
Anticipated Discharge: Within 24 hours
Subjective/Interval History
-
Date of Service: February 12, 2024
In no distress and no further passage of black stools overnight no emesis no hematemesis no abdominal pain/no headache presently
Objective Data
-
Labs:
Laboratory Results
02/12/24
05:28
WBC 7.5
Hgb 10.3 L
Hct 30.0 L
Plt Count 198
Sodium 136
Potassium 3.8
Chloride 107
Carbon Dioxide 23
BUN 20
Creatinine 1.0
Glucose 125 H
Calcium 9.2
Total Bilirubin 1.0
AST 16 L
ALT 16
Alkaline Phosphatase 38
Vital Signs:
Vital Signs
Temp Pulse Resp BP Pulse Ox
97.8 F 77 16 116/79 98
02/12/24 11:50 02/12/24 11:50 02/12/24 11:50 02/12/24 11:50 02/12/24 11:50
Review of Systems
-
History Source: Patient
EENT: Reports No Symptoms Reported
Cardiac: Reports No Symptoms
Abdomen/GI: Reports No Symptoms and Black Stools (Presentation that brought him here)
Musculoskeletal: Reports No Symptoms
Neuro: Reports No Symptoms
Hematologic / Lymphatic: Reports No Symptoms
Physical Exam
-
General: Well Developed
HEENT: Normocephalic
Respiratory: Clear to Auscultation
GI: Nontender, Nondistended and Normal Bowel Sounds
Psych: Calm
Data Reviewed
-
Total Time Spent with Patient (in minutes): 67
Labs: Labs Reviewed by me (Hemoglobin 10.3 from 11.6 on entrance)
--- NOTE | 2024-02-12 12:29 | CM ---
Reviewed the chart notes and spoke with the patient at the bedside. The patient resides with his spouse in a two story home with one step to enter. The patient reports no DME/VN/SNF in the past. The patient confirmed his pharmacy of choice is the
[facility]. CM continues to be available to patient/family and is monitoring medical plan for needs at discharge.
Plan: Discharge to home when medically stable. No needs anticipated.
--- NOTE | 2024-02-12 14:33 | W.PN.UPDATE ---
Update Note
Progress Note Update
EGD done
Sleeve gastrectomy anatomy
No bleeding seen
REC:
Prep for colonoscopy tomorrow
[2024-02-12 16:39] LABS: Glucose - Point of Care 175 mg/dl (70-99)
[2024-02-12] MEDS: NULYTELY SOLUTION 4 LITERS PO (18:13)
[2024-02-12 21:31] LABS: Glucose - Point of Care 135 mg/dl (70-99)
[2024-02-13] VITALS (7 sets, daily range): BP systolic 20–125; BP diastolic 74–87; BMI 34.2
[2024-02-13] MEDS: PROTONIX 100 IV ×2 (04:42→15:49)
[2024-02-13 06:03] LABS: Hematocrit 29.5 % (39.0-52.0); Hemoglobin 10.1 g/dL (13.0-18.0); Mean Corp Hgb Conc. 34.2 g/dL (33.0-37.0); Mean Corpuscular Hgb 29.2 pg (27.0-31.0); Mean Corpuscular Volume 85.3 fL (80.0-94.0); Platelet Count 191 10^3/uL (130-400); Red Blood Cell Count 3.46 10^6/uL (4.70-6.10); Red Cell Dist. Width 13.9 % (11.5-14.5); White Blood Cell Count 7.6 10^3/uL (4.8-10.8)
[2024-02-13 06:29] LABS: Blood Urea Nitrogen 14 mg/dl (9-20); Calcium 9.2 mg/dl (8.4-10.2); Carbon Dioxide 30 mmol/L (22-30); Chloride 107 mmol/L (98-107); Estimated Creatinine Clearance 123 ml/min; Glucose 103 mg/dl (70-99); Sodium 136 mmol/L (135-145); eGFR > 60.00
--- NOTE | 2024-02-13 06:42 | PTCARENOTE ---
Pt scheduled for colonoscopy today, unable to complete the prep as ordered, stating that his last stool was dark liquid. square dance caller GI made aware, OK for pt to finish prep this morning.
[2024-02-13 07:30] LABS: Glucose - Point of Care 137 mg/dl (70-99)
--- NOTE | 2024-02-13 08:38 | W.PN.HOSP.TC ---
Today's Communication/Plan
-
For colonoscopy today/if unremarkable given dark stool passage may need small bowel capsule endoscopy
Assessment / Plan
Assessment / Plan
43-year-old male with past medical history of gastric ulcer bleeding as a child, gastric sleeve, CHF, hypertension, myasthenia gravis, diabetes, presents with dizziness for the past 1 to 2 weeks. Dizziness occurs with exertion and is worse in the
morning but continue sporadically throughout the day. He also has some shortness of breath. Denies any chest pain. He has been having black tarry formed stools for the past 1 week. He has 2-3 bowel movements daily. He denies any iron
supplements or Pepto-Bismol. He denies any abdominal pain, nausea or vomiting, diarrhea, weight loss, fever or weakness.
He had rectal bleeding as a child and had endoscopy at that time which showed gastric ulcer.
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
He was also diagnosed with trigeminal neuralgia last month for headaches for 2 months by his primary care physician and was started on gabapentin. He has been taking Aleve 2 tablets every night for headache relief. His headaches have been more
controlled.
He denies smoking or alcohol use.
# Symptomatic acute blood loss anemia secondary to upper GI bleeding provoked by NSAID use/EGD however showed no signs of bleeding
-For colonoscopy today
# History of gastric sleeve
# History of gastric ulcer as a child
-Hemoglobin of 11.6 from 14 last month>> 10.1 this morning
-Type and screen
-Hold NSAIDs
-IV fluids given
-Protonix drip
-N.p.o./colonoscopy
-GI consulted
Headache secondary to trigeminal neuralgia
-Hold NSAIDs
-Continue gabapentin/we talked over options of up titration to try and avoid further NSAID usage
Chronic HFrEF
-Hold Lasix
-Continue Coreg
-Continue Entresto
Essential hypertension
Myasthenia gravis
-Continue mycophenolate
-Continue Prostigmin
-Continue prednisone
Type 2 diabetes
-Hold metformin
-Continue Farxiga
-Insulin sliding scale
Obesity
Full code
DVT prophylaxis�SCDs
N.p.o.
Anticipated Discharge: Within 24 hours
Subjective/Interval History
-
Date of Service: February 13, 2024
Remains asymptomatic no further passage of dark stool
Objective Data
-
Labs:
Laboratory Results
02/13/24
05:30
WBC 7.6
Hgb 10.1 L
Hct 29.5 L
Plt Count 191
Sodium 136
Potassium 4.0
Chloride 107
Carbon Dioxide 30
BUN 14
Creatinine 1.1
Glucose 103 H
Calcium 9.2
Vital Signs:
Vital Signs
Temp Pulse Resp BP Pulse Ox
98.4 F 90 17 119/86 98
02/13/24 07:25 02/13/24 07:25 02/13/24 07:25 02/13/24 07:25 02/13/24 07:25
I&O
02/12/24 02/13/24 02/14/24
06:59 06:59 06:59
Intake Total 5040 / 5040
Balance 5040 / 5040
Review of Systems
-
All other systems: Not reviewed unless documented
Physical Exam
-
General: Well Developed
HEENT: Normocephalic
Respiratory: Clear to Auscultation
Cardiac: Regular Rhythm
GI: Soft and Nontender
Data Reviewed
-
Total Time Spent with Patient (in minutes): 45
Labs: Labs Reviewed by me (Hemoglobin presently stable but dropped from his baseline of 14-10.1)
[2024-02-13] MEDS: JARDIANCE 10 MG PO (09:03)
[2024-02-13] MEDS: DELTASONE 20 MG PO (09:03)
[2024-02-13] MEDS: NEURONTIN 300 MG PO ×2 (09:03→15:50)
[2024-02-13] MEDS: ALDACTONE 25 MG PO (09:04)
[2024-02-13] MEDS: ENTRESTO 97 MG/103 MG 1 TAB PO (09:04)
[2024-02-13] MEDS: COREG 12.5 MG PO (09:04)
[2024-02-13 11:43] LABS: Glucose - Point of Care 157 mg/dl (70-99)
--- NOTE | 2024-02-13 14:22 | CM ---
Reviewed the chart notes. Patient had colonoscopy today. CM continues to be available to patient/family and is monitoring medical plan for needs at discharge.
Plan: Discharge to home with no anticipated needs.
--- NOTE | 2024-02-13 16:09 | W.DS.TRANS ---
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
-
Discharge Instructions:
Sleep Apnea Risk Intermediate
Discharge Diagnosis/Procedures GI bleed source still unclear after EGD and
colonoscopy finding no source
Diet Regular
Activity No restrictions
Driving Restrictions As prior to admission
Instructions:
Stand-Alone Forms:
Changes to Home Medications: Yes
Discharge Medications:
DC Medications w/original date entered in [facility]
prednisone 10 mg tablet 20 mg PO DAILY Autoimmune disorder 07/04/21
pyridostigmine bromide 60 mg tablet 60 mg PO QIDPRN PRN muscle pain 07/04/21
carvedilol 12.5 mg tablet (Coreg) 12.5 mg PO BID #60 tabs 12/27/23
dextroamphetamine-amphetamine 10 mg tablet 10 mg PO BIDPRN PRN FOCUS 02/11/24
empagliflozin 10 mg tablet (Jardiance) 10 mg PO DAILY 02/11/24
furosemide 40 mg tablet 40 mg PO DAILY 02/11/24
gabapentin 300 mg capsule 300 mg PO TID 02/11/24
sacubitril 97 mg-valsartan 103 mg tablet (Entresto) 1 tab PO BID 02/11/24
semaglutide 1 mg/dose (4 mg/3 mL) subcutaneous pen injector (Ozempic) 1 mg SC FR 02/11/24
sildenafil 100 mg tablet 100 mg PO DAILYPRN PRN ED 02/11/24
spironolactone 25 mg tablet 25 mg PO DAILY 02/11/24
pantoprazole 40 mg tablet,delayed release (Protonix) 40 mg PO DAILY #30 tabs 02/13/24
Home Medication Changes
pantoprazole 40 mg tablet,delayed release (Protonix) 40 mg PO DAILY #30 tabs 02/13/24
Pending Results: No
--- NOTE | 2024-02-13 16:13 | W.DCSUMMARY ---
Discharge Summary
Discharge Data
Date of Admission: 02/11/24
Date of Discharge: 02/13/24
-
Pending Results: No
Hospital Course
43-year-old male with past medical history of gastric ulcer bleeding as a child, gastric sleeve, CHF, hypertension, myasthenia gravis, diabetes, presents with dizziness for the past 1 to 2 weeks. Dizziness occurs with exertion and is worse in the
morning but continue sporadically throughout the day. He also has some shortness of breath. Denies any chest pain. He has been having black tarry formed stools for the past 1 week. He has 2-3 bowel movements daily. He denies any iron
supplements or Pepto-Bismol. He denies any abdominal pain, nausea or vomiting, diarrhea, weight loss, fever or weakness.
He also has a history of trigeminal neuralgia and for the last 9 months has had increasing headaches have been placed on gabapentin but he been using dosing of both Naprosyn and ibuprofen over that time.
He presented with a diagnosis of symptomatic acute blood loss anemia presumptively in relation upper GI bleed provoked by NSAID use he has a history of a gastric sleeve and a history of gastric ulcer as a child. Initial hemoglobin 11.6 a drop from
14 last month and at time of my evaluation 10 point 3 in the morning of his EGD. He was placed on a PPI IV
GI consultation performed a EGD which found no sites of active bleed or gastritis of note. Thusly underwent a scheduled bowel prep for a colonoscopy the following day which also proved negative for any site of bleed.
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
He will be continued on a PPI in the form of Protonix 40 mg a day and I will call in that into his pharmacy. He has been instructed to avoid all nonsteroidal anti-inflammatories including his prior usage of Aleve and ibuprofen. He has also been
advised that should his trigeminal neuralgic headaches become worse consideration would be toward uptitration of his gabapentin which is presently 300 mg 3 times daily he can resume his Lasix Coreg and Entresto at time of discharge also he is
diagnosed with a history of myasthenia gravis and is on mycophenolate Prostigmin and prednisone to continue
Discharge Plan
-
Patient Disposition: Home (Routine Discharge)
Discharge Diagnosis/Procedures: GI bleed source still unclear after EGD and colonoscopy finding no source
Diet: Regular
Activity: No restrictions
Driving Restrictions: As prior to admission
Referrals:
Jerardo Palma MD [Active] - in two weeks (Call for appointment to schedule capsule endoscopy)
Jakub Joseph MD [Family Provider] -
Additional Discharge Medication Instructions: Avoid all nonsteroidal anti-inflammatories
Prescriptions:
New
pantoprazole [Protonix] 40 mg tablet,delayed release (DR/EC)
40 mg PO DAILY Qty: 30 0RF
Continued
prednisone 10 MG tablet
20 mg PO DAILY
pyridostigmine bromide 60 MG tablet
60 mg PO QIDPRN PRN (Reason: muscle pain)
carvedilol [Coreg] 12.5 mg tablet
12.5 mg PO BID Qty: 60 0RF
furosemide 40 mg tablet
40 mg PO DAILY
dextroamphetamine-amphetamine 10 mg tablet
10 mg PO BIDPRN PRN (Reason: FOCUS)
Patient Comments:
02/11/2024: LAST FILLED 01/13/24, 60 TABS FOR 30 DAYS FROM [id number]
sildenafil 100 mg tablet
100 mg PO DAILYPRN PRN (Reason: ED)
spironolactone 25 mg tablet
25 mg PO DAILY
gabapentin 300 mg capsule
300 mg PO TID
Jardiance 10 mg tablet
10 mg PO DAILY
Entresto 97-103 mg tablet
1 tab PO BID
Ozempic 1 mg/dose (4 mg/3 mL) pen injector
1 mg SC FR
Discontinued
naproxen sodium [Aleve] 220 mg Tablet
440 mg PO DAILY@0200
ibuprofen 200 mg Tablet
400 mg PO DAILY@0200
Discharge Orders:
Discharge Patient (As Directed); Ordered 02/13/24
Ordered By: Huy Toth
Discharge Date and Time
Print Language: JAPANESE
== END 2024-02-13 17:16 | disposition home or self-care (01) | DRG 378 ==
LOC: 2 NORTH 23:43
PROVIDERS: Emergency Medicine; Internal Medicine Gastroenterology; ADMITTING PHYSICIAN Hospitalist; ATTENDING PHYSICIAN Internal Medicine; CONSULT PHYSICIAN Specialist; EMERGENCY PHYSICIAN Emergency Medicine; FAMILY PHYSICIAN Family Medicine
PROC: 0DJ08ZZ Inspection of Upper Intestinal Tract, Via Natural or Artificial Opening Endoscopic (ICD-10-PCS; 2024-02-12)
PROC: 0DJD8ZZ Inspection of Lower Intestinal Tract, Via Natural or Artificial Opening Endoscopic (ICD-10-PCS; 2024-02-13)
DX: K92.2 Gastrointestinal hemorrhage, unspecified (principal); D62 Acute posthemorrhagic anemia; I50.22 Chronic systolic (congestive) heart failure; I11.0 Hypertensive heart disease with heart failure; G70.00 Myasthenia gravis without (acute) exacerbation; E11.9 Type 2 diabetes mellitus without complications; G50.0 Trigeminal neuralgia; E66.9 Obesity, unspecified; F90.9 Attention-deficit hyperactivity disorder, unspecified type; T39.395A Adverse effect of other nonsteroidal anti-inflammatory drugs [NSAID], initial encounter; K57.30 Diverticulosis of large intestine without perforation or abscess without bleeding; K64.8 Other hemorrhoids; Z68.34 Body mass index [BMI] 34.0-34.9, adult; Z79.52 Long term (current) use of systemic steroids; Z79.84 Long term (current) use of oral hypoglycemic drugs; Z79.899 Other long term (current) drug therapy; Z87.11 Personal history of peptic ulcer disease; Z98.84 Bariatric surgery status
CPT/HCPCS: 80048; 80053; 82962; 83036; 85025; 85027; 86850; 86900; 86901; 93005; 96365; 96366; 96376; 99285

== ENCOUNTER → 2024-08-31 09:31 | Outpatient (REF) | payer OTHER, SELFPAY ==
--- NOTE | 2024-08-31 10:39 | CARDSERVLU ---
Echocardiogram with Lumason completed after protocol screening completed. Allergies verified.
Patent IV site: __new start 1st attempt RAC 22P ___
IV site flushed with 0.9% NaCl pre and post administration.
Diluted bolus method utilized to enhance visualization of ventricular ortiz.
Total volume given: __3.0__ mL
Patient tolerated all procedures well without complications.
site dcd at completion of test.
== END ==
LOC: RCS 09:31
PROVIDERS: ATTENDING PHYSICIAN Internal Medicine; FAMILY PHYSICIAN Family Medicine
DX: I42.0 Dilated cardiomyopathy (principal); I77.810 Thoracic aortic ectasia
CPT/HCPCS: 93306; Q9950